=== PATIENT | male | born 1980 | race Caucasian/White ===

== ENCOUNTER 2023-08-28 21:49 | Emergency (ER) | payer MEDICARE, MEDICAID | END 2023-08-28 22:20 | disposition home or self-care (01) | LOC: MERGE 21:49 → VM.ED 21:49 | DX: T42.1X1A Poisoning by iminostilbenes, accidental (unintentional), initial encounter (principal); T44.1X1A Poisoning by other parasympathomimetics [cholinergics], accidental (unintentional), initial encounter | CPT/HCPCS: 93005; 93010; 99283 ==